=== PATIENT | female | born 1995 | race African-American/Black ===

== ENCOUNTER 2017-07-09 15:39 | Emergency (ER) | payer SELFPAY ==
[2017-07-09 16:42] LABS: Bilirubin Negative (Negative); Blood, Urine Moderate (Negative); Clarity CLEAR (Clear); Glucose, Urine (Dipstick) Negative (Negative); Leukocyte Small (Negative); Nitrite Negative (Negative); Pregnancy Test - Urine (BHCG) POSITIVE (Negative); Pregu Control Background? CLEAR/WHITE (CLR/WHITE); Pregu Control Bar Appear? YES (CONTROL BAR); Protein, Urine (Dipstick) Negative (Neg-Trace); Specific Gravity 1.007 (1.002-1.036); Specific Gravity, Urine 1.009 (1.002-1.036); Urobilinogen 0.2 mg/dL (0.2-1.0); pH, Urine 7.5 (5.0-9.0)
[2017-07-09 16:43] LABS: Bacteria/HPF None Seen HPF (None Seen); Hyaline Casts/LPF 0-3 HYALINE CAST LPF (0-3 Hyaline); Pathc Cast-AUWi Flag 0.13 (0-2.49); RBC/HPF 0-3 HPF (0-3); Squamous Epithelial 0-3 HPF (0-3); WBC/HPF 0-3 HPF (0-3)
[2017-07-09 17:57] LABS: #Eosinphils 0.2 thou/uL (0.0-0.7); #Monocytes 1.1 thou/uL (0.11-0.59); #Neutrophils 6.1 thou/uL (1.40-6.50); %Basophils 0.4 % (0.0-1.0); %Eosinophils 2.2 % (0.0-10.0); %Lymphocytes 28.7 % (21.0-51.0); %Monocytes 10.4 % (0.0-10.0); %Neutrophils 58.3 % (42.0-75.0); Hemoglobin 12.5 g/dL (12.0-16.0); Mean Corpuscular HGB CONC 35.4 g/dL (32.0-36.0); Mean Platelet Volume 7.2 fL (7.4-10.4); Platelet Count 382 thou/uL (130-400); RBC Distribution Width 12.8 % (11.5-14.5); White Blood Cell (WBC) Count 10.5 thou/uL (4.8-10.8)
--- NOTE | 2017-07-09 19:17 | ULT ---
PELVIC ULTRASOUND: Date: 07-09-17 History: Cramping, dizziness, spotting, 22-year-old female. Technique: Multiplanar grayscale sonographic imaging of the pelvis is obtained with transabdominal an d endovaginal imaging. Ovaries are assessed with color flow and spectral analysis. FINDINGS: Uterus measures 10.6 x 5.6 x 5.3 cm. Right ovary measures 3.7 x 1.9 x 2.4 cm and left ovary measures 3.3 x 2.0 x 2.5 cm. There is an intrauterine gestational sac containing a pole and a yolk sac. No evidence for a givens bchorionic hemorrhage is seen. heart rate is approximately 108 beats/minute. Blood flow is note d within both ovaries without evidence for ovarian/adnexal mass. Small volume free fluid is noted in the pelvic cul-de-sac. [place]-rump length of 0.34 cm correlates with a 6 week 0 day gestation. Gestational sac diameter of 1. 8 cm correlates with a 6 week 5 day gestation. Average age based on ultrasound is 6 weeks 3 days with an estimated date of delivery of 03-01-18. IMPRESSION: Intrauterine gestational sac containing pole and yolk sac with heart rate of 108 beats/mi nute. POS: [facility]
[2017-07-11 01:07] LABS: Chlamydia by PCR Not Detected (NotDetected); GC by PCR Not Detected (NotDetected)
== END 2017-07-09 18:19 | disposition home or self-care (01) ==
LOC: ERS 15:39
DX: O99.89 Other specified diseases and conditions complicating pregnancy, childbirth and the puerperium (principal); N89.8 Other specified noninflammatory disorders of vagina; Z3A.01 Less than 8 weeks gestation of pregnancy
CPT/HCPCS: 36415; 36416; 76856; 81003; 81015; 81025; 84702; 85025; 86900; 86901; 87480; 87491; 87510; 87591; 87660

== ENCOUNTER 2017-07-11 18:56 | Emergency (ER) | payer SELFPAY ==
[2017-07-11 19:20] LABS: #Basophils 0.1 thou/uL (0.0-0.2); #Eosinphils 0.2 thou/uL (0.0-0.7); #Monocytes 1.5 thou/uL (0.11-0.59); #Neutrophils 8.6 thou/uL (1.40-6.50); %Basophils 0.7 % (0.0-1.0); %Eosinophils 1.6 % (0.0-10.0); %Lymphocytes 22.3 % (21.0-51.0); %Monocytes 11.3 % (0.0-10.0); %Neutrophils 64.1 % (42.0-75.0); Hemoglobin 12.3 g/dL (12.0-16.0); Mean Corpuscular HGB CONC 35.6 g/dL (32.0-36.0); Mean Corpuscular Hemoglobin 28.8 pg (27.0-31.0); Mean Corpuscular Volume 80.9 fl (81.0-99.0); Mean Platelet Volume 7.2 fL (7.4-10.4); Platelet Count 390 thou/uL (130-400); RBC Distribution Width 12.7 % (11.5-14.5); Red Blood Cell (RBC) Count 4.28 mill/uL (4.20-5.40); White Blood Cell (WBC) Count 13.5 thou/uL (4.8-10.8)
[2017-07-11 19:42] LABS: ALT (SGPT) 17 U/L (8-55); AST (SGOT) 13 U/L (5-34); Albumin 4.1 g/dL (3.5-5.0); Alkaline Phosphatase 63 U/L (40-150); Anion Gap 11 mmol/L (10-20); BUN (Urea Nitrogen) 9 mg/dL (7.0-18.7); Calc. Creatinine Clearance 0 mL/min (70-130); Calcium 9.7 mg/dL (7.8-10.44); Carbon Dioxide 25 mmol/L (22-29); Chloride 104 mmol/L (98-107); Estimated GFR-MDRD Greater than 90; Globulin 3.5 g/dL (2.4-3.5); Glucose 85 mg/dL (70-105); Potassium 3.7 mmol/L (3.5-5.1); Protein, Total 7.6 g/dL (6.0-8.3); Sodium 136 mmol/L (136-145)
[2017-07-11 19:58] LABS: Bilirubin Negative (Negative); Blood, Urine Moderate (Negative); Clarity CLEAR (Clear); Glucose, Urine (Dipstick) Negative (Negative); Leukocyte Moderate (Negative); Nitrite Negative (Negative); Protein, Urine (Dipstick) Negative (Neg-Trace); Specific Gravity, Urine 1.027 (1.002-1.036)
[2017-07-11 20:00] LABS: Bacteria/HPF Rare-Few HPF (None Seen); Hyaline Casts/LPF 0-3 HYALINE CAST LPF (0-3 Hyaline); RBC/HPF 0-3 HPF (0-3)
--- NOTE | 2017-07-11 22:11 | ULT ---
PELVIC ULTRASOUND 07/11/17 COMPARISON: 07/09/17 HISTORY: Cramping, dizziness, and spotting, positive test. TECHNIQUE: Multiplanar barriga scale sonographic imaging of the pelvis obtained with transabdominal imaging. The ov raissa are assessed with color flow and spectral analysis. IMPRESSION: The uterus measures 10.6 x 5.6 x 5.3 cm. Right ovary measures 3.7 x 1.9 x 2.4 cm and left ovary measu res 3.3 x 2.0 x 2.5 cm. Normal blood flow is noted within both ovaries. There is an intrauterine gestational sac demonstrating a pole and a yolk sac. No evidence for a subchorionic hemorrhage is seen. heart rate is 108 beats per minute. No adnexal mass. No free fluid. [place]-rump length is 0.5 cm, correlating with a 6 week, 2 day gestati on. Gestational sac diameter is 2.2 cm correlating with a 7 week, 1 day gestation. Average gestation by ultrasound is 6 weeks, 5 days. Estimated date of delivery is 03/01/18. IMPRESSION: Intrauterine gestation as detailed above. POS: [facility]
== END 2017-07-11 21:01 | disposition home or self-care (01) ==
LOC: ERS 18:56
DX: O20.0 Threatened abortion (principal); O23.41 Unspecified infection of urinary tract in pregnancy, first trimester; Z3A.01 Less than 8 weeks gestation of pregnancy
CPT/HCPCS: 36415; 76856; 80053; 81003; 81015; 84702; 85025; 86850; 86900; 86901; 93976

== ENCOUNTER 2017-07-15 00:07 | Emergency (ER) | payer SELFPAY ==
[2017-07-15 00:57] LABS: #Basophils 0.1 thou/uL (0.0-0.2); #Eosinphils 0.3 thou/uL (0.0-0.7); #Lymphocytes 3.9 thou/uL (1.20-3.40); #Monocytes 1.1 thou/uL (0.11-0.59); #Neutrophils 6.2 thou/uL (1.40-6.50); %Basophils 0.9 % (0.0-1.0); %Eosinophils 2.3 % (0.0-10.0); %Lymphocytes 33.8 % (21.0-51.0); %Monocytes 9.8 % (0.0-10.0); %Neutrophils 53.2 % (42.0-75.0); Hemoglobin 12.5 g/dL (12.0-16.0); Mean Corpuscular HGB CONC 35.8 g/dL (32.0-36.0); Mean Corpuscular Hemoglobin 29.3 pg (27.0-31.0); Mean Corpuscular Volume 81.9 fl (81.0-99.0); Mean Platelet Volume 7.2 fL (7.4-10.4); Platelet Count 390 thou/uL (130-400); RBC Distribution Width 12.8 % (11.5-14.5); Red Blood Cell (RBC) Count 4.28 mill/uL (4.20-5.40); White Blood Cell (WBC) Count 11.6 thou/uL (4.8-10.8)
[2017-07-15 01:13] LABS: ALT (SGPT) 21 U/L (8-55); AST (SGOT) 15 U/L (5-34); Albumin 3.9 g/dL (3.5-5.0); Alkaline Phosphatase 60 U/L (40-150); Anion Gap 12 mmol/L (10-20); BUN (Urea Nitrogen) 8 mg/dL (7.0-18.7); Bilirubin, Total 0.9 mg/dL (0.2-1.2); Calc. Creatinine Clearance 0 mL/min (70-130); Calcium 9.6 mg/dL (7.8-10.44); Carbon Dioxide 23 mmol/L (22-29); Chloride 104 mmol/L (98-107); Estimated GFR-MDRD Greater than 90; Globulin 3.5 g/dL (2.4-3.5); Glucose 88 mg/dL (70-105); Potassium 3.9 mmol/L (3.5-5.1); Protein, Total 7.4 g/dL (6.0-8.3); Sodium 135 mmol/L (136-145)
== END 2017-07-15 01:54 | disposition home or self-care (01) ==
LOC: ERS 00:07
DX: O21.9 Vomiting of pregnancy, unspecified (principal); O99.281 Endocrine, nutritional and metabolic diseases complicating pregnancy, first trimester; E78.5 Hyperlipidemia, unspecified; Z3A.01 Less than 8 weeks gestation of pregnancy
CPT/HCPCS: 36415; 36416; 80053; 84702; 85025; 96360

== ENCOUNTER 2017-08-26 16:31 | Emergency (ER) | payer MEDICAID ==
[2017-08-26 17:28] LABS: Bilirubin Small (Negative); Blood, Urine Negative (Negative); Clarity CLOUDY (Clear); Glucose, Urine (Dipstick) Negative (Negative); Leukocyte Large (Negative); Nitrite Negative (Negative); Pregnancy Test - Urine (BHCG) POSITIVE (Negative); Protein, Urine (Dipstick) 30 mg/dL (Neg-Trace); pH, Urine 5.5 (5.0-9.0)
[2017-08-26 17:29] LABS: Bacteria/HPF Rare-Few HPF (None Seen); Pathc Cast-AUWi Flag 2.47 (0-2.49); Pregu Control Background? CLEAR/WHITE (CLR/WHITE); Pregu Control Bar Appear? YES (CONTROL BAR)
[2017-08-26 17:39] LABS: Hyaline Casts/LPF 0-3 HYALINE CAST LPF (0-3 Hyaline)
[2017-08-26] MEDS ORDERED: diphenhydrAMINE 50 MG/ML VIAL ONE (17:47)
[2017-08-26] MEDS ORDERED: Metoclopramide HCl 10 MG/2 ML VIAL ONE (17:47)
[2017-08-26 17:56] LABS: #Eosinphils 0.1 thou/uL (0.0-0.7); #Lymphocytes 2.7 thou/uL (1.20-3.40); #Neutrophils 7.2 thou/uL (1.40-6.50); %Basophils 0.4 % (0.0-1.0); %Eosinophils 0.6 % (0.0-10.0); %Lymphocytes 24.6 % (21.0-51.0); %Monocytes 9.2 % (0.0-10.0); %Neutrophils 65.2 % (42.0-75.0); Hemoglobin 14.8 g/dL (12.0-16.0); Mean Corpuscular HGB CONC 36.3 g/dL (32.0-36.0); Mean Corpuscular Hemoglobin 29.5 pg (27.0-31.0); Mean Corpuscular Volume 81.3 fl (81.0-99.0); Mean Platelet Volume 6.9 fL (7.4-10.4); Platelet Count 406 thou/uL (130-400); RBC Distribution Width 13.3 % (11.5-14.5); White Blood Cell (WBC) Count 11.1 thou/uL (4.8-10.8)
[2017-08-26] MEDS ORDERED: Nitrofurantoin Macrocrystal 50 MG CAP PO SCH (18:30)
[2017-08-26] MEDS ORDERED: cefTRIAXone\\ROCEPHIN 250 MG VIAL ONE (18:42)
[2017-08-26] MEDS ORDERED: Azithromycin 250 MG TAB ONE (18:42)
[2017-08-26] MEDS ORDERED: Lidocaine 1% PF 5 ML VIAL ONE (18:42)
[2017-08-26 19:02] LABS: Calcium 9.4 mg/dL (7.8-10.44); Chloride 105 mmol/L (98-107); Potassium 3.6 mmol/L (3.5-5.1); Sodium 137 mmol/L (136-145)
[2017-08-26 19:03] LABS: Globulin 3.3 g/dL (2.4-3.5); Glucose 95 mg/dL (70-105); Protein, Total 7.3 g/dL (6.0-8.3)
[2017-08-26 19:04] LABS: Anion Gap 14 mmol/L (10-20); Carbon Dioxide 22 mmol/L (22-29)
[2017-08-26 19:05] LABS: Bilirubin, Total 1.1 mg/dL (0.2-1.2)
[2017-08-26 19:06] LABS: Alkaline Phosphatase 44 U/L (40-150); Calc. Creatinine Clearance 0 mL/min (70-130); Estimated GFR-MDRD Greater than 90
[2017-08-26 19:07] LABS: BUN (Urea Nitrogen) 8 mg/dL (7.0-18.7)
[2017-08-26 19:08] LABS: AST (SGOT) 25 U/L (5-34)
[2017-08-26 19:09] LABS: ALT (SGPT) 33 U/L (8-55)
[2017-08-27 22:22] LABS: Chlamydia by PCR Not Detected (NotDetected); GC by PCR Not Detected (NotDetected)
== END 2017-08-26 19:30 | disposition home or self-care (01) ==
LOC: ERS 16:31
DX: O99.282 Endocrine, nutritional and metabolic diseases complicating pregnancy, second trimester; O21.0 Mild hyperemesis gravidarum; Z3A.17 17 weeks gestation of pregnancy; E78.5 Hyperlipidemia, unspecified
CPT/HCPCS: 36415; 80053; 81003; 81015; 81025; 84702; 85025; 87077; 87086; 87480; 87491; 87510; 87591; 87660; 96361; 96372; 96374; 96375; J0696; J1200; J2001; J2765

== ENCOUNTER 2017-12-25 14:22 | Observation (INO) | payer MEDICAID, OTHER ==
[2017-12-25 15:07] LABS: #Basophils 0.1 thou/uL (0.0-0.2); #Eosinphils 0.1 thou/uL (0.0-0.7); #Lymphocytes 2.3 thou/uL (1.20-3.40); #Monocytes 1.4 thou/uL (0.11-0.59); #Neutrophils 6.1 thou/uL (1.40-6.50); %Basophils 0.5 % (0.0-1.0); %Lymphocytes 23.5 % (21.0-51.0); %Monocytes 13.6 % (0.0-10.0); %Neutrophils 61.4 % (42.0-75.0); Hemoglobin 11.3 g/dL (12.0-16.0); Mean Corpuscular HGB CONC 36.4 g/dL (32.0-36.0); Mean Corpuscular Hemoglobin 29.9 pg (27.0-31.0); Mean Platelet Volume 7.3 fL (7.4-10.4); Platelet Count 273 thou/uL (130-400); White Blood Cell (WBC) Count 9.9 thou/uL (4.8-10.8)
[2017-12-25 15:32] LABS: ALT (SGPT) 14 U/L (8-55); AST (SGOT) 14 U/L (5-34); Albumin 3.8 g/dL (3.5-5.0); Alkaline Phosphatase 56 U/L (40-150); Anion Gap 12 mmol/L (10-20); BUN (Urea Nitrogen) 4 mg/dL (7.0-18.7); Bilirubin, Total 0.5 mg/dL (0.2-1.2); Calc. Creatinine Clearance 0 mL/min (70-130); Calcium 9.5 mg/dL (7.8-10.44); Carbon Dioxide 19 mmol/L (22-29); Chloride 107 mmol/L (98-107); Estimated GFR-MDRD Greater than 90; Globulin 3.2 g/dL (2.4-3.5); Glucose 84 mg/dL (70-105); Potassium 3.9 mmol/L (3.5-5.1); Sodium 134 mmol/L (136-145)
--- NOTE | 2017-12-25 16:06 | ULT ---
OBSTETRIC SONOGRAM LIMITED: 12/25/17 HISTORY: induced hypertension. FINDINGS: Multiple transabdominal sonographic views of the gravid uterus show a single intrauterine gestation i n cephalic presentation. Grade II placenta is anterior. Amniotic fluid index is 16.4. Heart motion at 135 beats per minute. Advanced age limits anatomic detail. Good color and spectral doppler wilfrido w within the umbilical cord with S-D ratio of 2.7. Resistive index is 0.56. Measurements are as follows: Biparietal diameter 31 weeks, 3 days Head circumference 32 weeks, 2 days Abdominal circumference 31 weeks, 0 days Femur length 31 weeks, 1 day Estimated date of delivery based on today's sonogram is 02/22/18. [place] percentile 35%. Estimated fe jakob weight 1718 grams. IMPRESSION: Single viable intrauterine gestation with estimated gestational age based on today's sonogram of 31 w eeks, 4 days. Umbilical cord evaluation within normal limits. POS: [facility]
[2017-12-25] MEDS ORDERED: Ondansetron HCl/PF 4 MG/2 ML Vial IVP PRN (17:52)
[2017-12-25] MEDS ORDERED: Acetaminophen 500 MG TAB PO PRN (17:52)
[2017-12-25] MEDS: Betamet Acet/Betamet Na Ph 30 MG/5 ML VIAL IM SCH (18:16)
[2017-12-25] MEDS ORDERED: Cephalexin 250 MG CAP PO SCH (19:45)
[2017-12-26] MEDS: Cephalexin 250 MG CAP PO SCH ×2 (09:21→14:53)
[2017-12-26 12:46] VITALS: BP 113/53; TEMP 98.2
[2017-12-26] MEDS ORDERED: Ondansetron ODT 4 MG TAB SL PRN (13:39)
[2017-12-26] MEDS ORDERED: Ondansetron ODT 4 MG TAB SL SCH (13:45)
[2017-12-26 16:15] LABS: Collection Duration 24 hrs; Urine Total Volume 2450 mL (600-1600)
[2017-12-26 16:38] LABS: Protein, Urine Less than 10 mg/dL (1-14)
[2017-12-26] MEDS: Betamet Acet/Betamet Na Ph 30 MG/5 ML VIAL IM SCH (18:30)
[2017-12-26 19:37] VITALS: BMI 43.9
== END 2017-12-26 19:55 | disposition home health service (06) ==
LOC: L&D/OP 14:22 → L&D 17:50
PROVIDERS: ADMIT Family Medicine; ATTEND Family Medicine
DX: O13.3 Gestational [pregnancy-induced] hypertension without significant proteinuria, third trimester (principal); Z3A.31 31 weeks gestation of pregnancy
CPT/HCPCS: 36415; 76700; 76815; 80053; 81003; 82570; 84156; 85025; 96372; 99285; G0378; J0702; Q0162

== ENCOUNTER 2017-12-28 15:12 | Day surgery (SDC) | payer OTHER ==
[2017-12-28 16:52] VITALS: BMI 41.3
[2017-12-28 16:58] VITALS: BP 132/70; TEMP 99.1
--- NOTE | 2017-12-28 18:16 | PRG ---
DATE OF SERVICE: 12/28/2017 OB ER ENCOUNTER PRIMARY INSPECTOR WATCH ASSEMBLY: Roel Donaldson MD CHIEF COMPLAINT: Chest and epigastric pain. HISTORY OF PRESENT ILLNESS: The patient is a 22-year-old, G1, P0 female with an intrauterine at 31 weeks and 5 days, who presented to labor and delivery today after experiencing some upper abdominal epigastric and chest pains. She reports that the pain in her abdomen and her chest have all since resolved by the time I came to evaluate her. She reports that her chest pain is like lightning from her chest down to her abdomen. She denied any association with breathing or movement. Her abdominal pain she described as tightening. In temporal proximity to these symptoms, the patient has eaten Dairy Ortiz. When asked what the patient's biggest concern was, the patient reports that she has a family member that had preeclampsia and that she was worried that she may be developing that also. The patient denies headache, fever, shortness of breath, nausea, vomiting, diarrhea, constipation, any new rashes, any hip problems, knee problems, muscle weakness. She does report she still has copious amount of vaginal discharge, for which she was diagnosed with Trichomonas a few weeks back and placed on metronidazole. The patient reports her discharge has not changed since then. She denies any sexual contact since the time of her antibiotic use. The patient denies urinary urgency or frequency. PAST MEDICAL HISTORY: Sickle cell trait, elevated cholesterol, morbid obesity. PAST SURGICAL HISTORY: Negative. ALLERGIES: No known drug allergies. MEDICATIONS: Currently on Keflex, which she says that she is taking per her doctor's instructions, but unsure why. SOCIAL HISTORY: Denies drug, alcohol, or tobacco use. OBSTETRIC LABORATORY DATA: Blood type is O positive. Antibody screen is negative. RPR in the first and third trimester are negative. HIV in the first and third trimester is negative. Hepatitis B surface antigen is negative. She is rubella nonimmune. One-hour Glucola is 150. Three-hour GTT is within normal limits. She had GBS present in her urine on initial culture and had Trichomonas present on 11/20/2017. REVIEW OF SYSTEMS: Per HPI. PHYSICAL EXAMINATION: VITAL SIGNS: Blood pressure 128/61, heart rate of 91, O2 sats 96% on room air, respiratory rate 18, temperature 99.1. GENERAL: She appears to be in no acute distress. She is alert and oriented, cooperative, and pleasant to interact with. HEENT: Normocephalic, atraumatic. LUNGS: Clear to auscultation bilaterally. HEART: Regular rate and rhythm. ABDOMEN: Protuberant, nontender to palpation. She does have some reproducible pain to palpation of her costochondral juncture, mid thoracic region on the left , and she has some reproducible pain on the patient's right abdomen with deviation of the uterus. EXTREMITIES: Nontender, nonedematous. GENITOURINARY: Has been deferred. heart tracing and NST performed for abdominal pain in . Baseline is in the 140s with moderate long-term variability, positive accelerations, no decelerations. Tocometer does not show any evidence of regular contractions. SURGICAL TECHNICIAN-3 has been collected and sent. ASSESSMENT AND PLAN: The patient is a 22-year-old female with an intrauterine at 31 weeks and 5 days and history of Trichomonas and persistent vaginal discharge, presenting with isolated and short-lived abdominal and chest pains in close proximity to eating Dairy Ortiz. The patient has no symptoms at this time. I did attempt to get a right upper quadrant ultrasound to evaluate her gallbladder, but given that she just ate, ultrasound would not be able to perform optimal imaging. The patient has been given an order for an outpatient ultrasound to be performed for her gallbladder, and has been given instructions to go in fasting and has been given the phone number for her to make her appointment. The patient also expressed interest to leave before the SURGICAL TECHNICIAN-3 results were available and has been given instructions to call back for those results, which she has agreed to do. The patient has been discharged to home. Fetus is reactive NST and category 1 tracing. Addendum, VP3 is positive for trichamonas again. PT never called back to get results. i have attempted to call her with the number in the system but it goes straight to a message stating voicemail is full. Perhaps Dr Donaldson's office can reach her. JONNAD
[2017-12-30] MEDS ORDERED: VIT B6 PO SCH (09:00)
[2017-12-30] MEDS ORDERED: Cephalexin 250 MG CAP PO SCH (09:00)
[2017-12-30] MEDS ORDERED: DOXYLAMINE SUCCINATE PO SCH (09:00)
[2017-12-30] MEDS ORDERED: Prenatal Vitamin 1 TAB PO SCH (09:00)
== END 2017-12-28 17:10 | disposition home health service (06) ==
LOC: L&D/OP 15:12
PROVIDERS: ATTEND Obstetrics & Gynecology
DX: O99.89 Other specified diseases and conditions complicating pregnancy, childbirth and the puerperium (principal); R10.13 Epigastric pain; R07.9 Chest pain, unspecified; O99.213 Obesity complicating pregnancy, third trimester; E66.01 Morbid (severe) obesity due to excess calories; Z68.41 Body mass index [BMI] 40.0-44.9, adult; Z3A.31 31 weeks gestation of pregnancy
CPT/HCPCS: 87480; 87510; 87660; 99283

== ENCOUNTER 2018-01-17 01:06 | Emergency (ER) | payer OTHER ==
[2018-01-17 02:10] LABS: #Eosinphils 0.3 thou/uL (0.0-0.7); #Monocytes 1.3 thou/uL (0.11-0.59); #Neutrophils 5.4 thou/uL (1.40-6.50); %Basophils 0.2 % (0.0-1.0); %Eosinophils 2.9 % (0.0-10.0); %Lymphocytes 22.1 % (21.0-51.0); %Monocytes 14.7 % (0.0-10.0); %Neutrophils 60.2 % (42.0-75.0); Hemoglobin 10.9 g/dL (12.0-16.0); Mean Corpuscular HGB CONC 36.2 g/dL (32.0-36.0); Mean Corpuscular Hemoglobin 29.2 pg (27.0-31.0); Mean Corpuscular Volume 80.5 fL (78.0-98.0); Mean Platelet Volume 7.4 fL (7.4-10.4); Platelet Count 263 thou/uL (130-400); Red Blood Cell (RBC) Count 3.75 mill/uL (4.20-5.40)
[2018-01-17 02:27] LABS: ALT (SGPT) 15 U/L (8-55); AST (SGOT) 12 U/L (5-34); Albumin 3.6 g/dL (3.5-5.0); Alkaline Phosphatase 76 U/L (40-150); Anion Gap 13 mmol/L (10-20); BUN (Urea Nitrogen) 5 mg/dL (7.0-18.7); Bilirubin, Total 0.5 mg/dL (0.2-1.2); Calc. Creatinine Clearance 0 mL/min (70-130); Calcium 9.2 mg/dL (7.8-10.44); Carbon Dioxide 20 mmol/L (22-29); Chloride 107 mmol/L (98-107); Estimated GFR-MDRD Greater than 90; Globulin 3.3 g/dL (2.4-3.5); Glucose 102 mg/dL (70-105); Potassium 3.9 mmol/L (3.5-5.1); Protein, Total 6.9 g/dL (6.0-8.3); Sodium 136 mmol/L (136-145)
[2018-01-17 03:49] LABS: Creatinine, Urine 87.58 mg/dL (47-110)
--- NOTE | 2018-01-17 08:12 | RAD ---
SINGLE VIEW OF THE CHEST: COMPARISON: None. HISTORY: Congestion and vomiting that started today. Cough. FINDINGS: Single view of the chest shows a normal sized cardiomediastinal silhouette. There is no evidence of c onsolidation, mass, or pleural effusion. The bones are unremarkable. IMPRESSION: No evidence of acute cardiopulmonary disease. POS: [facility]
== END 2018-01-17 03:34 | disposition home or self-care (01) ==
LOC: ERS 01:06
DX: O99.513 Diseases of the respiratory system complicating pregnancy, third trimester (principal); J32.9 Chronic sinusitis, unspecified; B97.89 Other viral agents as the cause of diseases classified elsewhere; Z3A.34 34 weeks gestation of pregnancy; E78.5 Hyperlipidemia, unspecified; O13.3 Gestational [pregnancy-induced] hypertension without significant proteinuria, third trimester
CPT/HCPCS: 36415; 71045; 80053; 82570; 83880; 84156; 84550; 85025

== ENCOUNTER 2019-08-10 09:42 | Emergency (ER) | payer OTHER ==
[2019-08-10] MEDS ORDERED: Ondansetron ODT 4 MG TAB ONE (10:44)
[2019-08-10] MEDS ORDERED: Ibuprofen 200 MG TAB ONE (10:44)
[2019-08-10 11:25] LABS: Bilirubin Negative (Negative); Blood, Urine Negative (Negative); Clarity Clear (Clear); Glucose, Urine (Dipstick) Normal (Negative); Leukocyte 25 Leu/uL (Negative); Mucous/LPF Rare LPF (<2+); Nitrite 2+ (Negative); Pregnancy Test - Urine (BHCG) Negative (Negative); Pregu Control Background? CLEAR/WHITE (CLR/WHITE); Pregu Control Bar Appear? YES (CONTROL BAR); Protein, Urine (Dipstick) 30 mg/dL (Neg-Trace); Specific Gravity 1.032 (1.002-1.036); Squamous Epithelial 0-3 HPF (0-3); Urobilinogen Normal mg/dL (Less than 2)
[2019-08-10 11:33] LABS: Bacteria/HPF 2+ HPF (None Seen)
== END 2019-08-10 12:00 | disposition home or self-care (01) ==
LOC: ERS 09:42
DX: N39.0 Urinary tract infection, site not specified (principal); E78.5 Hyperlipidemia, unspecified; E78.00 Pure hypercholesterolemia, unspecified
CPT/HCPCS: 81003; 81015; 81025; 87086; 87804; 99283; Q0162

== ENCOUNTER 2019-09-01 04:43 | Emergency (ER) | payer MEDICAID, SELFPAY ==
[2019-09-01] MEDS ORDERED: METHOTREXATE SODIUM IM SCH (06:30)
--- NOTE | 2019-09-01 07:04 | CON ---
DATE OF CONSULTATION: REFERRING PHYSICIAN: Dr. Eden, ER physician. CHIEF COMPLAINT: Concerns for ectopic . HISTORY OF PRESENT ILLNESS: The patient is a 24-year-old, G2, now P1 female with a last menstrual period of 06/29/2019, who presented to the emergency room with abdominal pain and cramping. She was noted to have no IUP with a quantitative HCG of 17,000. In addition, patient was noted to have a 2.7 cm para ovarian echogenic ring-like mass, suspicious for ectopic . The patient was transferred from [facility] to [place] for evaluation. On arrival, I was called and came to see the patient. The patient at that time reported that she was not having any pain except for rectal pain that she felt most when she was sitting down. She denies any abdominal pain. She denies any pulmonary disease, any liver disease. Denies a previous history of ectopic pregnancies. She does report a history of chlamydia in the past. The patient denies history of fever, cough, headache, chest pain, shortness of breath, nausea, and vomiting. She did have an episode of loose stool yesterday, but denies constipation. She does report a history of hemorrhoids. Denies any rashes, hip problems, knee problems, muscle weakness, vaginal bleeding. PAST MEDICAL HISTORY: Negative. PAST SURGICAL HISTORY: Negative. ALLERGIES: NO KNOWN DRUG ALLERGIES. MEDICATIONS: None. SOCIAL HISTORY: The patient does report occasional tobacco use. Denies any drug or alcohol use. PHYSICAL EXAMINATION: VITAL SIGNS: Blood pressure is 116/66, pulse is 64, respiratory rate 18, temperature 98.4, saturating 99% on room air. GENERAL: She is reclined comfortably in the exam bed. She is alert, oriented, cooperative, and pleasant to interact with. HEENT: Head is normocephalic, atraumatic. LUNGS: Clear to auscultation bilaterally. HEART: Regular rate and rhythm. ABDOMEN: Soft to deep and light palpation. She has some minimal tenderness in the right lower side with deep palpation but no guarding, no peritoneal signs, no rigidity and only mild pain. : Deferred at this time. LABORATORY DATA: Quantitative HCG again was 17,346. LFTs are within normal limits. White count of 9000 and platelets of 345,000. ASSESSMENT AND PLAN: The patient is a 24-year-old female with a suspected ectopic as evidenced by no intrauterine . Quantitative HCG of 17,000 with a 2.7 cm adnexal rim enhancing mass. We discussed the options of surgery versus medical management. We discussed the potential risks and benefits of both, including the risks associated with surgery and then the risks of the medication including sores in her GI tract including mouth and anus, abdominal pains, diarrhea. She also confirmed once again that she has no pulmonary disease. No liver problems. We did discuss the importance of avoiding sex, alcohol consumption, vitamins and should she begin experiencing significant bleeding or pain, to contact her provider or come to the emergency room should she take medical direction. After discussing treatment options and calling her , patient has chosen to move forward with the medical management. Calculating at 50 mg/m2 at a weight of 113 kg, a height of 67 inches, dosing came out to 115 mg. She has been given a prescription for quantitative HCG on day four and day seven. She was scheduled or is planning on seeing Dr. Roel Donaldson for her today. We will be contacting Dr. Donaldson for just to inform him of her situation currently with plans for him assuming care. Job ID: [id number]
== END 2019-09-01 07:00 | disposition home or self-care (01) ==
LOC: ERS 04:43
DX: O00.90 Unspecified ectopic pregnancy without intrauterine pregnancy (principal); E78.5 Hyperlipidemia, unspecified; E78.00 Pure hypercholesterolemia, unspecified
CPT/HCPCS: 96372; 99284; J9250

== ENCOUNTER 2019-09-02 12:30 | Emergency (ER) | payer SELFPAY ==
[2019-09-02 13:27] LABS: #Eosinphils 0.1 thou/uL (0.0-0.7); #Lymphocytes 2.3 thou/uL (1.20-3.40); #Monocytes 0.7 thou/uL (0.11-0.59); %Basophils 0.3 % (0.0-1.0); %Eosinophils 0.8 % (0.0-10.0); %Lymphocytes 28.6 % (21.0-51.0); %Neutrophils 61.3 % (42.0-75.0); Hemoglobin 13.2 g/dL (12.0-16.0); Mean Corpuscular Hemoglobin 29.2 pg (27.0-31.0); Mean Corpuscular Volume 81.3 fL (78.0-98.0); Mean Platelet Volume 7.7 fL (7.4-10.4); Platelet Count 373 thou/uL (130-400); RBC Distribution Width 13.8 % (11.5-14.5); Red Blood Cell (RBC) Count 4.52 mill/uL (4.20-5.40); White Blood Cell (WBC) Count 8.1 thou/uL (4.8-10.8)
[2019-09-02] MEDS ORDERED: Ondansetron PF 4 MG/2 ML Vial ONE ×2 (13:32→17:32)
[2019-09-02] MEDS ORDERED: Acetaminophen 500 MG TAB ONE (13:32)
[2019-09-02 14:16] LABS: ALT (SGPT) 15 U/L (8-55); AST (SGOT) 15 U/L (5-34); Albumin 4.4 g/dL (3.5-5.0); Alkaline Phosphatase 56 U/L (40-110); Anion Gap 13 mmol/L (10-20); BUN (Urea Nitrogen) 8 mg/dL (7.0-18.7); Bilirubin, Total 1.2 mg/dL (0.2-1.2); Calc. Creatinine Clearance 0 mL/min (70-130); Calcium 9.7 mg/dL (7.8-10.44); Carbon Dioxide 21 mmol/L (22-29); Chloride 106 mmol/L (98-107); Estimated GFR-MDRD Greater than 90; Globulin 3.5 g/dL (2.4-3.5); Glucose 85 mg/dL (70-105); Potassium 3.7 mmol/L (3.5-5.1); Protein, Total 7.9 g/dL (6.0-8.3); Sodium 136 mmol/L (136-145)
[2019-09-02 14:48] LABS: Bacteria/HPF None Seen HPF (None Seen); Bilirubin Negative (Negative); Blood, Urine Negative (Negative); Clarity Clear (Clear); Glucose, Urine (Dipstick) Normal (Negative); Leukocyte 75 Leu/uL (Negative); Nitrite Negative (Negative); Protein, Urine (Dipstick) 20 mg/dL (Neg-Trace); RBC/HPF 0-3 HPF (0-3)
--- NOTE | 2019-09-02 16:06 | ULT ---
TRANSABDOMINAL AND TRANSVAGINAL PELVIC ULTRASOUND WITH DOPPLER: 09/02/19 PROVIDED CLINICAL HISTORY: Pelvic pain, ectopic . FINDINGS: Uterus measures about 11.4 x 5.3 x 6.9 cm and demonstrates a normal sonographic appearance of the [place] myometrium. There is endometrial thickening with a small amount of endometrial fluid. There is n o evidence for an intrauterine gestational sac. The right ovary appears sonographically unremarkable. The left adnexa is somewhat suboptimally visual ized. There is a cystic structure adjacent to the left ovary measuring about 2.2 cm. The left ovary itself appears normal. There is a small amount of simple appearing free pelvic fluid in the cul-de-sac. IMPRESSION: 1. No evidence for an intrauterine gestational sac. In the setting of a positive beta HCG value, ectopic cannot be excluded. 2. Left adnexal cystic structure may reflect the provided clinical history of ectopic . 3. Small amount of likely physiologic free pelvic fluid. POS: [facility]
[2019-09-02] MEDS ORDERED: Mineral Oil ENEMA PR SCH (17:00)
--- NOTE | 2019-09-03 01:43 | CON ---
DATE OF CONSULTATION: 09/02/2019 CHIEF COMPLAINT: Abdominal pain. HISTORY OF PRESENT ILLNESS: The patient is a 24-year-old female, who initially presented yesterday morning with pelvic and rectal pain and had findings concerning for ectopic . After counseling, the patient has opted medical treatment and was given 115 mg of methotrexate IM. She has re-presented this afternoon with complaints of abdominal pain and I was asked to come and see her. She reports to me that she feels like she is constipated and has not had a bowel movement in four days. She does report she has abdominal pain, but has only had Tylenol today for treatment. The patient denies any bleeding. She denies any worsening pain or pain sufficiently strong to limit her ability to function. The patient is scheduled to go into work tonight and was wondering if she is able to do that. PAST MEDICAL HISTORY: Obesity, hyperlipidemia. PAST SURGICAL HISTORY: Negative. SOCIAL HISTORY: The patient is a former tobacco user. Denies alcohol or drug use. ALLERGIES: SHELLFISH. MEDICATIONS: Tylenol. REVIEW OF SYSTEMS: The patient denies fever, nausea, vomiting, or diarrhea. She reports constipation. She reports decreased appetite. She reports rectal pain and she reports some pain in her lower right quadrant. PHYSICAL EXAMINATION: VITAL SIGNS: Blood pressure 112/50, pulse of 51, respiratory rate 18, temperature 98.7. GENERAL: She appears to be in no acute distress. She is alert, oriented, cooperative, pleasant to interact with. HEAD: Normocephalic, atraumatic. LUNGS: Clear to auscultation bilaterally. HEART: Regular rate and rhythm. ABDOMEN: Soft. There is no guarding. There are no peritoneal signs. She has some minimal tenderness with deep palpation on the left lower pelvis. Repeat ultrasound was performed today. Again finding a 2.2 cm cystic mass in the left adnexa adjacent to the ovary concerning for ectopic . She has no findings or evidence of an intrauterine . Her beta HCG today is 27,000. ASSESSMENT AND PLAN: The patient is a 24-year-old female with 2.2 cm left adnexal mass concerning for an ectopic . She has been given a dose of methotrexate, day four is on checking her quant levels and day seven is Sunday. During her stay here and our discussions, the patient believes most of her pain is related to not having a bowel movement for the last four days. She was given an enema while she was here and while the patient denies that she had any significant bowel movement, she does report that on my re-evaluation that her pain has improved quite a bit. She has only had Tylenol during her stay and believes that she feels comfortable going home without any pain medication. I did provide a note for her requesting that she not work for the next few days or trying to figure out the course of this treatment plan. The patient has been given precautions and told to return should her pelvic abdominal pain significantly worsen and reviewed again the importance of getting labs this . Job ID: [id number]
--- NOTE | 2019-09-06 09:49 | EKG ---
Test Reason : Blood Pressure : / mmHG Vent. Rate : 054 BPM Atrial Rate : 054 BPM P-R Int : 138 ms QRS Dur : 080 ms QT Int : 426 ms P-R-T Axes : 042 061 037 degrees QTc Int : 403 ms Sinus bradycardia Otherwise normal ECG Confirmed by MANJINDER RAMOS DO ([id number]), editor newspaper RIGOBERTO MASON ([id number]) on 09/06/2019 9:48:58 AM Referred By: Confirmed By:MANJINDER RAMOS DO
== END 2019-09-02 19:15 | disposition home or self-care (01) ==
LOC: ERS 12:30
DX: O00.90 Unspecified ectopic pregnancy without intrauterine pregnancy (principal); K59.00 Constipation, unspecified; Z87.891 Personal history of nicotine dependence
CPT/HCPCS: 36415; 76856; 80053; 81003; 81015; 84702; 85025; 93005; 96374; 96376; J2405

== ENCOUNTER 2019-09-03 10:15 | Emergency (ER) | payer SELFPAY ==
[2019-09-03] MEDS ORDERED: Ondansetron PF 4 MG/2 ML Vial ONE ×2 (11:09→12:05)
[2019-09-03 11:38] LABS: #Basophils 0.1 thou/uL (0.0-0.2); #Eosinphils 0.1 thou/uL (0.0-0.7); #Lymphocytes 2.2 thou/uL (1.20-3.40); #Monocytes 0.5 thou/uL (0.11-0.59); #Neutrophils 5.9 thou/uL (1.40-6.50); %Basophils 0.7 % (0.0-1.0); %Eosinophils 0.7 % (0.0-10.0); %Lymphocytes 25.1 % (21.0-51.0); %Monocytes 6.1 % (0.0-10.0); %Neutrophils 67.3 % (42.0-75.0); Hemoglobin 12.3 g/dL (12.0-16.0); Mean Corpuscular HGB CONC 35.4 g/dL (32.0-36.0); Mean Corpuscular Hemoglobin 28.8 pg (27.0-31.0); Mean Corpuscular Volume 81.3 fL (78.0-98.0); Mean Platelet Volume 7.7 fL (7.4-10.4); Platelet Count 354 thou/uL (130-400); RBC Distribution Width 13.7 % (11.5-14.5); Red Blood Cell (RBC) Count 4.28 mill/uL (4.20-5.40); White Blood Cell (WBC) Count 8.7 thou/uL (4.8-10.8)
[2019-09-03] MEDS ORDERED: Midazolam HCl 2 mg/2 ml Vial ONE (11:52)
[2019-09-03] MEDS ORDERED: HYDROmorphone 0.5 MG/0.5 ML SYRINGE ONE (11:52)
[2019-09-03] MEDS ORDERED: Lidocaine 2% Jelly 5 ML TUBE ONE (11:52)
[2019-09-03] MEDS ORDERED: Fentanyl 100 MCG/2 ML VIAL ONE ×4 (11:52→15:37)
--- NOTE | 2019-09-03 12:03 | PDOC.EVN ---
Event Note - Event Note Event Note: Patient seen at bedside H&P dictated CC: pelvic pain after MTX HPI: 24 yo AAF 1 s/p MTX on Sunday, here with nausea and LAP. Sono: Left 2.2cm cystic adnexal mass HCT 34 Type & Cross sent Impression: 1. Abnormal IUP with increase pelvic pain, rising BHCG, possible ectopic on left 2. S/P MTX Plan: 1. Diag laparoscopy 2. lapartomy and D&C only if indicated 3. T&C for 2 units 4. IC obtained 5. OR aware
[2019-09-03] MEDS ORDERED: Dexamethasone 20 MG/5 ML VIAL ONE (12:05)
[2019-09-03] MEDS ORDERED: Succinylcholine Chloride 20 MG/ML 10 ml SYRINGE FS ONE (12:05)
[2019-09-03] MEDS ORDERED: PROPOFOL 200 MG/20 ML VIAL ONE (12:05)
[2019-09-03] MEDS ORDERED: Metoclopramide HCl 10 MG/2 ML VIAL ONE (12:05)
[2019-09-03] MEDS ORDERED: Lidocaine 1% PF 5 ML VIAL ONE (12:05)
[2019-09-03] MEDS ORDERED: Ketorolac Tromethamine 30 MG/ML VIAL ONE (12:05)
[2019-09-03] MEDS ORDERED: Glycopyrrolate 0.2 MG/ML 5 ML SYRINGE ONE (12:05)
[2019-09-03] MEDS ORDERED: Rocuronium Bromide 10 MG/ML (10ML VIAL) ONE (12:05)
[2019-09-03] MEDS ORDERED: Lactated Ringer's 1,000 ML IV SCH (12:15)
[2019-09-03 12:29] LABS: INR-International Normal Ratio 1.3; PTT 30.5 SEC (22.9-36.1); Prothrombin Time 16.3 SEC (12.0-14.7)
--- NOTE | 2019-09-03 12:30 | HP ---
TIME OF EVALUATION: Roughly 11:30 until 11:55. LOCATION: ER bed 3. PHYSICIAN FIRST SEEN: By Vance Keene MD with Emergency Medicine. REASON FOR EVALUATION: The patient is status post methotrexate on Sunday with rising beta-hCG levels and increased abdominal pain with nausea. CHIEF COMPLAINT: Increasing abdominal pain and nausea. HISTORY OF PRESENT ILLNESS: This is a 24-year-old , G2, P1, with a vaginal delivery in 2018, who received methotrexate with Dr. Pacheco on Sunday with her beta-hCG of about 17,000. Her beta-hCG yesterday when she presented to the ER again with some increasing abdominal discomfort was 27,000. She also has some increasing nausea and states that when she moves, her pelvic pain which is worse on the right seems to be worse. REVIEW OF SYSTEMS: The patient denies fever, cough or recent travel. All other review of systems were negative unless specified in the HPI. ALLERGIES: NONE. PAST MEDICAL HISTORY: 1. She is a sickle cell carrier, but does not have sickle cell disease. 2. She does not have diabetes or asthma. PAST SURGICAL HISTORY: Negative. SOCIAL HISTORY: Noncontributory. OB HISTORY: She has had a prior vaginal . PHYSICAL EXAMINATION: VITAL SIGNS: Her blood pressure is 131/56, her pulse is 80 to 90, respirations are 18 and nonlabored, and temperature is afebrile. GENERAL: She is in no acute distress, but does have some visible discomfort in her abdomen. ABDOMEN: Some pain on deep palpation, although there is no rebound, but rebound may be limited because of her BMI. PELVIC: Deferred DIAGNOSTIC DATA: Ultrasound: The patient did have a recent ultrasound examination performed through the emergency room, which showed the following. The ultrasound was performed on 09/02/2019, which revealed a small amount of simple-appearing free fluid in the cul-de-sac. Uterus was about 11 to 12 cm. There was some endometrial thickening with a small amount of endometrial fluid, but no evidence of an intrauterine gestational sac. The left adnexa was not well seen, but there was a small cystic structure seen next to the left ovary, which was about 2.2 cm, but the left ovary itself looked normal according to the report. The right ovary appeared sonographically unremarkable. LABORATORY DATA: The patient's hematocrit value yesterday was 36.8 and today is 34.8. AST and ALT were normal yesterday. The patient's beta-hCG was 27,411 yesterday. The patient's blood type is Rh positive based on the ER physician report. ASSESSMENT: 1. This is a 24-year-old G2, P1 with a previous vaginal with an abnormal beta-hCG with no evidence of IUP (intrauterine ) on ultrasound. Due to the rise in beta-hCG and her increasing abdominal pain, I have consented her for diagnostic laparoscopy and possible salpingectomy. If there is an ectopic mass , it is likely on the left due to the ultrasound findings. I did discuss with her possible need for laparotomy if indicated and D and C if the laparoscopy fail to determine the site of . 2. Blood was also discussed with the patient and she has been consented to blood only if necessary. 3. I have performed informed consent to the patient and informed consent was obtained. 4. I have called the OR (at 11:45) and they are putting her as an add-on. Job ID: [id number] MTDD
[2019-09-03] MEDS ORDERED: Bupivacaine PF 0.5% 30 ML VIAL ONE (12:39)
[2019-09-03] MEDS ORDERED: Lidocaine 1% w/Epinephrine 1:100K 20 ML VIAL ONE (12:39)
[2019-09-03] MEDS ORDERED: Famotidine/PF 20 mg/2ml Vial ONE (12:55)
[2019-09-03] MEDS ORDERED: Meperidine HCl/PF 25 MG/ML VIAL ONE (14:45)
[2019-09-03] MEDS ORDERED: Butorphanol Tartrate 1 MG/ML VIAL SLOW IVP PRN (14:56)
[2019-09-03] MEDS ORDERED: Promethazine HCl 25 MG/ML VIAL IM/IV PRN (14:57)
--- NOTE | 2019-09-03 15:39 | OP ---
DATE OF PROCEDURE: 09/03/2019 PREOPERATIVE DIAGNOSIS: Suspected left tubal ectopic , status post methotrexate. POSTOPERATIVE DIAGNOSES: 1. Suspected left tubal ectopic , status post methotrexate. 2. Left tubal ectopic . PROCEDURES PERFORMED: 1. Left salpingectomy. 2. Diagnostic/operative laparoscopy. SYSTEMS TECHNICIAN: Cristiano Draper MD. ANESTHESIA: General. ANTIBIOTICS: None. IV FLUIDS: About 1 L crystalloid. URINE OUTPUT: By Gomez, about 150 mL at the start of the case by in and out catheterization before the indwelling was placed. ESTIMATED BLOOD LOSS: About 50 mL. Most of that was a hemoperitoneum. FINDINGS: 1. There were no intraabdominal pelvic adhesions. 2. There was a normal ovary on the right and a normal ovary on the left. 3. Normal adnexa on the right. 4. The left tube had about a 2.5 cm swelling with blood through the fimbria. 5. Hemostasis postprocedure. DISPOSITION: Home after recovery. TISSUE SENT: Left tube, which was removed. INDICATIONS FOR SURGERY: This is a patient who received methotrexate over the weekend and came in with rising abdominal pain and abnormal increasing beta HCG. She was consented for laparoscopy and possible salpingectomy. DESCRIPTION OF PROCEDURE: After proper informed consent was explained to the patient, she was taken to OR-C. She was placed under general endotracheal anesthesia, and all precautions were done especially for airborne infections. At this point, it was noted that this patient was not a patient of interest for COVID. Next, the patient was placed in Navarro stirrups and all pressure points were adequately padded. Deep hyperflexion and external rotation were avoided in the positioning process. The patient's vulva, vagina, and lower pelvis and the abdomen were prepped and draped in the usual sterile fashion. Attention was first turned to the patient's vaginal area by me. I placed a Graves bivalve speculum and placed a single-tooth tenaculum on the anterior lip of the cervix for retraction and a single-toothed hulka was placed onto the cervix for uterine manipulation. Then, the single-tooth tenaculum was removed. There was no evidence of perforation. The Graves bivalve speculum was removed. Surgeon's cover gloves were then removed and attention was turned toward the patient's abdomen. It is important to note that we first started with a 5 mm infraumbilical incision, but because of the patient's BMI we were preperitoneal. We tried Veress needle, direct trocar insertion under visualization, but being unsuccessful we tried entry in Escalante's point. Again, due to her BMI, we were preperitoneal. We then decided to go back to the infraumbilical site and entered by open technique. We used a 12 mm Naya after the fascia was identified by sharp dissection. The fascia had been entered to allow the 10 mm trocar to be placed. After noting proper entry into the abdominal pelvic cavity and after noting no injury at the left upper quadrant by direct visualization, we then turned our attention towards the pelvis. Two accessory ports were placed at the right and left lower quadrants for assistance. Proper insufflation was maintained and the left ectopic was noted. We then used a LigaSure device to amputate the left tube where the ectopic was seen. This was placed in an EndoCatch bag and it was removed through the 12 mm port. After confirming hemostasis and after copious irrigation of the abdominal pelvic cavity and after confirming that the left adnexal dissection area was hemostatic, all instruments were removed and the infraumbilical port was closed. The fascia was closed under direct visualization by identification of the fascia and placing 0 Vicryl suture to close the fascia in about 3 or 4 interrupted sutures. No defect was noted at the infraumbilical area. Skin edges were then closed with Dermabond without complication. The infraumbilical incision was closed with subcuticular suture in addition to the Dermabond. No complications were noted. The vaginal hulka was removed at the end of the procedure, and she was transported to recovery without complication. The tissue was sent to Pathology. Job ID: [id number] MTDD
== END 2019-09-03 12:23 | disposition admitted as inpatient to this hospital (09) ==
LOC: ERS 10:15
DX: O00.90 Unspecified ectopic pregnancy without intrauterine pregnancy (principal); E78.5 Hyperlipidemia, unspecified; Z87.891 Personal history of nicotine dependence
CPT/HCPCS: 36415; 84702; 85025; 85610; 85730; 88305; 96361; 96374; J1100; J1170; J1885; J2001; J2175; J2250; J2405; J2704; J2765; J3010; S0020; S0028

== ENCOUNTER 2019-11-21 22:29 | Emergency (ER) | payer SELFPAY ==
[2019-11-21 22:57] LABS: Bilirubin Negative (Negative); Blood, Urine Negative (Negative); Clarity Clear (Clear); Glucose, Urine (Dipstick) Normal (Negative); Ketone, Urine Negative (Negative); Leukocyte 75 Leu/uL (Negative); Nitrite Negative (Negative); Protein, Urine (Dipstick) Negative (Neg-Trace); RBC/HPF 0-3 HPF (0-3); Specific Gravity, Urine 1.033 (1.002-1.036); WBC/HPF 0-3 HPF (0-3); pH, Urine 6.5 (5.0-9.0)
[2019-11-21 22:58] LABS: Bacteria/HPF Rare-Few HPF (None Seen)
[2019-11-21 22:59] LABS: Pregnancy Test - Urine (BHCG) Negative (Negative); Pregu Control Background? CLEAR/WHITE (CLR/WHITE); Pregu Control Bar Appear? YES (CONTROL BAR); Specific Gravity 1.033 (1.002-1.036)
== END 2019-11-21 23:55 | disposition home or self-care (01) ==
LOC: ERS 22:29
DX: L03.316 Cellulitis of umbilicus (principal); E78.5 Hyperlipidemia, unspecified; E78.00 Pure hypercholesterolemia, unspecified; F12.10 Cannabis abuse, uncomplicated
CPT/HCPCS: 81003; 81015; 81025; 99283

== ENCOUNTER 2020-03-21 20:50 | Emergency (ER) | payer SELFPAY ==
[2020-03-21] MEDS ORDERED: Ketorolac Tromethamine 30 MG/ML VIAL ONE (22:24)
[2020-03-21 22:55] LABS: Pregnancy Test - Urine (BHCG) Negative (Negative)
[2020-03-21 22:56] LABS: Pregu Control Background? CLEAR/WHITE (CLR/WHITE); Pregu Control Bar Appear? YES (CONTROL BAR); Specific Gravity 1.028 (1.002-1.036)
[2020-03-22 13:03] LABS: SARS-CoV-2 MS2 Positive; SARS-CoV-2 N Gene Negative; SARS-CoV-2 S Gene Negative; SARS-CoV-2 by NAA Not Detected (NotDetected); SARS-CoV-2 orf1ab Negative
== END 2020-03-22 | disposition home or self-care (01) ==
LOC: ERS 20:50
DX: B34.9 Viral infection, unspecified (principal); E78.5 Hyperlipidemia, unspecified; E78.00 Pure hypercholesterolemia, unspecified; D57.3 Sickle-cell trait
CPT/HCPCS: 81025; 87635; 87804; 96372; 99284; J1885; U0003

== ENCOUNTER 2020-06-06 06:44 | Emergency (ER) | payer SELFPAY ==
[2020-06-06] MEDS ORDERED: Ketorolac Tromethamine 30 MG/ML VIAL ONE (07:29)
--- NOTE | 2020-06-06 07:50 | RAD ---
XR Chest 1 View Portable History: Chest pain Comparison: Radiograph January 17, 2018 Findings: No confluent airspace consolidation, pneumothorax or effusion. No acute osseous abnormality . Impression: No acute intrathoracic abnormality.
--- NOTE | 2020-06-26 22:48 | EKG ---
Test Reason : Blood Pressure : / mmHG Vent. Rate : 058 BPM Atrial Rate : 058 BPM P-R Int : 146 ms QRS Dur : 078 ms QT Int : 410 ms P-R-T Axes : 045 066 045 degrees QTc Int : 402 ms Sinus bradycardia with sinus arrhythmia Nonspecific ST abnormality Abnormal ECG Confirmed by VALDEMAR LOPEZ, BRANDIN ([id number]), non linear editor RIGOBERTO MASON ([id number]) on 06/26/2020 10:47:57 PM Referred By: Confirmed By:BRANDIN ALDRICH MD
== END 2020-06-06 08:43 | disposition home or self-care (01) ==
LOC: ERS 06:44
DX: R07.89 Other chest pain (principal); E78.5 Hyperlipidemia, unspecified; E78.00 Pure hypercholesterolemia, unspecified; F17.210 Nicotine dependence, cigarettes, uncomplicated
CPT/HCPCS: 71045; 93005; 96372; J1885

== ENCOUNTER 2020-09-29 10:13 | Emergency (ER) | payer OTHER ==
[2020-09-29 13:10] LABS: Bilirubin Negative (Negative); Blood, Urine Negative (Negative); Clarity Clear (Clear); Glucose, Urine (Dipstick) Normal (Negative); Ketone, Urine Negative (Negative); Leukocyte 500 Leu/uL (Negative); Nitrite Negative (Negative); Protein, Urine (Dipstick) 30 mg/dL (Neg-Trace); RBC/HPF 0-3 HPF (0-3); Specific Gravity, Urine 1.031 (1.002-1.036); Urobilinogen 3 mg/dL (Less than 2)
[2020-09-29 13:13] LABS: Bacteria/HPF 1+ HPF (None Seen); Pregnancy Test - Urine (BHCG) Negative (Negative); Pregu Control Background? CLEAR/WHITE (CLR/WHITE); Pregu Control Bar Appear? YES (CONTROL BAR); Specific Gravity 1.031 (1.002-1.036)
== END 2020-09-29 12:57 | disposition left against medical advice (07) ==
LOC: ERS 10:13
DX: R11.2 Nausea with vomiting, unspecified (principal); R19.7 Diarrhea, unspecified
CPT/HCPCS: 81003; 81015; 81025; 99283

== ENCOUNTER 2021-10-23 09:07 | Emergency (ER) | payer OTHER ==
[2021-10-23] MEDS ORDERED: Acetaminophen 500 MG TAB ONE (09:37)
[2021-10-23 09:42] LABS: #Eosinphils 0.1 thou/uL (0.0-0.7); #Lymphocytes 2.6 thou/uL (1.20-3.40); #Monocytes 0.7 thou/uL (0.11-0.59); #Neutrophils 4.7 thou/uL (1.40-6.50); %Eosinophils 1.6 % (0.0-10.0); %Lymphocytes 31.6 % (21.0-51.0); %Monocytes 8.9 % (0.0-10.0); %Neutrophils 57.9 % (42.0-75.0); Hemoglobin 11.5 g/dL (12.0-16.0); Mean Corpuscular HGB CONC 35.4 g/dL (32.0-36.0); Mean Corpuscular Hemoglobin 29.6 pg (27.0-31.0); Mean Corpuscular Volume 83.7 fL (78.0-98.0); Mean Platelet Volume 7.5 fL (7.4-10.4); Platelet Count 299 thou/uL (130-400); RBC Distribution Width 12.8 % (11.5-14.5); Red Blood Cell (RBC) Count 3.88 mill/uL (4.20-5.40); White Blood Cell (WBC) Count 8.1 thou/uL (4.8-10.8)
[2021-10-23 10:05] LABS: ALT (SGPT) 13 U/L (8-55); AST (SGOT) 11 U/L (5-34); Albumin 3.6 g/dL (3.5-5.0); Alkaline Phosphatase 45 U/L (40-110); Anion Gap 15 mmol/L (10-20); BUN (Urea Nitrogen) 7 mg/dL (7.0-18.7); Bilirubin, Total 0.6 mg/dL (0.2-1.2); Calc. Creatinine Clearance 0 mL/min (70-130); Carbon Dioxide 19 mmol/L (22-29); Chloride 105 mmol/L (98-107); Globulin 3.1 g/dL (2.4-3.5); Glucose 101 mg/dL (70-105); Lipase 9 U/L (8-78); Potassium 3.6 mmol/L (3.5-5.1); Protein, Total 6.7 g/dL (6.0-8.3); Sodium 135 mmol/L (136-145)
[2021-10-23 10:49] LABS: Bilirubin Negative (Negative); Blood, Urine Negative (Negative); Clarity Clear (Clear); Glucose, Urine (Dipstick) Normal (Negative); Ketone, Urine Negative (Negative); Leukocyte 500 Leu/uL (Negative); Nitrite Negative (Negative); Protein, Urine (Dipstick) 20 mg/dL (Neg-Trace); RBC/HPF 0-3 HPF (0-3); Urobilinogen Normal mg/dL (Less than 2)
[2021-10-23 10:51] LABS: Bacteria/HPF 1+ HPF (None Seen)
== END 2021-10-23 11:26 | disposition home or self-care (01) ==
LOC: ERS 09:07
DX: O99.891 Other specified diseases and conditions complicating pregnancy (principal); R51.9 Headache, unspecified; O23.42 Unspecified infection of urinary tract in pregnancy, second trimester; N39.0 Urinary tract infection, site not specified; O24.911 Unspecified diabetes mellitus in pregnancy, first trimester; Z79.899 Other long term (current) drug therapy
CPT/HCPCS: 36415; 76815; 80053; 81003; 81015; 83690; 85025

== ENCOUNTER 2021-11-09 10:30 | Outpatient (CLI) | payer OTHER | END 2021-11-09 10:31 | disposition home or self-care (01) | LOC: BICULT 10:30 | PROVIDERS: ATTEND Family Medicine | DX: O09.892 Supervision of other high risk pregnancies, second trimester (principal); Z3A.21 21 weeks gestation of pregnancy | CPT/HCPCS: 76805 ==

== ENCOUNTER 2022-08-01 07:24 | Emergency (ER) | payer OTHER ==
[2022-08-01] MEDS ORDERED: Promethazine HCl 25 MG in Sodium Chloride 0.9% 50 ML IVPB SCH (09:00)
[2022-08-01 09:01] LABS: #Basophils 0.1 thou/uL (0.0-0.2); #Lymphocytes 2.8 thou/uL (1.20-3.40); #Monocytes 1.1 thou/uL (0.11-0.59); #Neutrophils 11.6 thou/uL (1.40-6.50); %Basophils 0.6 % (0.0-1.0); %Eosinophils 0.1 % (0.0-10.0); %Lymphocytes 17.7 % (21.0-51.0); %Monocytes 7.3 % (0.0-10.0); %Neutrophils 74.3 % (42.0-75.0); Hemoglobin 13.2 g/dL (12.0-16.0); Mean Corpuscular HGB CONC 36.1 g/dL (32.0-36.0); Mean Corpuscular Hemoglobin 28.5 pg (27.0-31.0); Mean Corpuscular Volume 79.1 fl (78.0-98.0); Mean Platelet Volume 7.8 fL (7.4-10.4); Platelet Count 456 10x3/uL (130-400); RBC Distribution Width 13.6 % (11.5-14.5); Red Blood Cell (RBC) Count 4.63 mill/uL (4.20-5.40); White Blood Cell (WBC) Count 15.7 10x3/uL (4.8-10.8)
[2022-08-01 09:25] LABS: ALT (SGPT) 39 U/L (8-55); AST (SGOT) 29 U/L (5-34); Acetaminophen Less than 10.0 mcg/mL (10.0-30.0); Albumin 4.4 g/dL (3.5-5.0); Alcohol Less than 10 mg/dL (Less than 10); Alkaline Phosphatase 65 U/L (40-110); Anion Gap 17 mmol/L (10-20); BUN (Urea Nitrogen) 8 mg/dL (7.0-18.7); Bilirubin, Total 1.7 mg/dL (0.2-1.2); Calc. Creatinine Clearance 0 mL/min (70-130); Calcium 10.2 mg/dL (7.8-10.44); Carbon Dioxide 18 mmol/L (22-29); Chloride 107 mmol/L (98-107); Estimated GFR 106; Globulin 3.6 g/dL (2.4-3.5); Glucose 121 mg/dL (70-105); Lipase 22 U/L (8-78); Potassium 3.6 mmol/L (3.5-5.1); Salicylate Less than 8.0 mg/dL (15.0-30.0); Sodium 138 mmol/L (136-145)
[2022-08-01 09:47] LABS: HCG, Total Quant 95614.9 mIU/mL (See Ranges)
[2022-08-01 09:48] LABS: Thyroid Stimulating Hormone 0.3454 uIU/mL (0.35-4.94)
[2022-08-01 13:21] LABS: Amphetamine Not Detected (NotDetected); Barbiturates Screen Not Detected (NotDetected); Benzodiazepine Screen Not Detected (NotDetected); Cocaine Metabolite Screen Not Detected (NotDetected); Methadone Not Detected (NotDetected); Methamphetamine Not Detected (NotDetected); Opiate Screen Not Detected (NotDetected); Oxycodone Screen Not Detected (NotDetected); Phencyclidine (PCP) Not Detected (NotDetected); THC/Cannabinoid Screen Detected (NotDetected); Tricyclic Screen Not Detected (NotDetected)
[2022-08-01 13:25] LABS: Bacteria/HPF 1+ HPF (None Seen); Bilirubin Negative (Negative); Blood, Urine Negative (Negative); Clarity Turbid (Clear); Glucose, Urine (Dipstick) Normal (Negative); Ketone, Urine 40 mg/dL (Negative); Leukocyte 500 Leu/uL (Negative); Nitrite Negative (Negative); Protein, Urine (Dipstick) 100 mg/dL (Neg-Trace); Specific Gravity, Urine 1.035 (1.002-1.036); Urobilinogen Normal mg/dL (Less than 2); WBC/HPF 21-50 HPF (0-3); pH, Urine 8.5 (5.0-9.0)
[2022-08-01] MEDS ORDERED: Cephalexin 250 MG CAP ONE ×2 (13:46→13:54)
[2022-08-01] MEDS ORDERED: Ondansetron PF 4 MG/2 ML Vial ONE (13:54)
[2022-08-01] MEDS ORDERED: Ondansetron ODT 4 MG TAB ONE (18:01)
== END 2022-08-01 18:05 ==
LOC: ERS 07:24
DX: R45.851 Suicidal ideations (principal); O99.891 Other specified diseases and conditions complicating pregnancy; D72.829 Elevated white blood cell count, unspecified; E11.9 Type 2 diabetes mellitus without complications
CPT/HCPCS: 76801; 80053; 80306; 80307; 81003; 81015; 83690; 84443; 84484; 84702; 85025; 87086; 93005; 96361; 96365; 96366; 96375; J2405; J2550; Q0162

== ENCOUNTER 2022-12-12 13:57 | Emergency (ER) | payer OTHER ==
[2022-12-12] MEDS ORDERED: Prochlorperazine 10 MG/2 ML VIAL ONE (14:21)
[2022-12-12 15:33] LABS: #Monocytes 0.6 thou/uL (0.11-0.59); #Neutrophils 6.5 thou/uL (1.40-6.50); %Basophils 0.2 % (0.0-1.0); %Eosinophils 0.1 % (0.0-10.0); %Lymphocytes 18.7 % (21.0-51.0); %Monocytes 6.3 % (0.0-10.0); %Neutrophils 74.4 % (42.0-75.0); Hemoglobin 10.5 g/dL (12.0-16.0); Mean Corpuscular HGB CONC 35.2 g/dL (32.0-36.0); Mean Corpuscular Hemoglobin 29.4 pg (27.0-31.0); Mean Corpuscular Volume 83.5 fl (78.0-98.0); Mean Platelet Volume 10.9 fL (7.4-10.4); Platelet Count 268 10x3/uL (130-400); RBC Distribution Width 13.8 % (11.5-14.5); Red Blood Cell (RBC) Count 3.57 mill/uL (4.20-5.40); White Blood Cell (WBC) Count 8.7 10x3/uL (4.8-10.8)
[2022-12-12 16:03] LABS: ALT (SGPT) 10 U/L (8-55); AST (SGOT) 13 U/L (5-34); Albumin 3.5 g/dL (3.5-5.0); Alkaline Phosphatase 46 U/L (40-110); Anion Gap 16 mmol/L (10-20); BUN (Urea Nitrogen) Less than 4 mg/dL (7.0-18.7); Bilirubin, Total 0.7 mg/dL (0.2-1.2); Calc. Creatinine Clearance 0 mL/min (70-130); Calcium 9.1 mg/dL (7.8-10.44); Carbon Dioxide 18 mmol/L (22-29); Chloride 107 mmol/L (98-107); Estimated GFR 127; Glucose 90 mg/dL (70-105); Potassium 3.5 mmol/L (3.5-5.1); Protein, Total 6.5 g/dL (6.0-8.3); Sodium 137 mmol/L (136-145)
[2022-12-12 16:45] LABS: Bacteria/HPF None Seen HPF (None Seen); Bilirubin Negative (Negative); Blood, Urine Negative (Negative); CAUTI Indications for Culture Pregnancy; Clarity Clear (Clear); Glucose, Urine (Dipstick) Normal (Negative); Ketone, Urine Greater than 150 mg/dL (Negative); Leukocyte 75 Leu/uL (Negative); Nitrite Negative (Negative); Protein, Urine (Dipstick) 30 mg/dL (Neg-Trace); RBC/HPF 0-3 HPF (0-3); Specific Gravity, Urine 1.025 (1.002-1.036); Squamous Epithelial 0-3 HPF (0-3); Urobilinogen Normal mg/dL (Less than 2); WBC/HPF 0-3 HPF (0-3); pH, Urine 7.5 (5.0-9.0)
[2022-12-12 16:49] LABS: Urine Culture Reflex Yes Yes
[2022-12-12 16:52] LABS: Amphetamine Not Detected (NotDetected); Barbiturates Screen Not Detected (NotDetected); Benzodiazepine Screen Not Detected (NotDetected); Cocaine Metabolite Screen Not Detected (NotDetected); Methadone Not Detected (NotDetected); Methamphetamine Not Detected (NotDetected); Opiate Screen Not Detected (NotDetected); Oxycodone Screen Not Detected (NotDetected); Phencyclidine (PCP) Not Detected (NotDetected); THC/Cannabinoid Screen Detected (NotDetected); Tricyclic Screen Not Detected (NotDetected)
== END 2022-12-12 17:13 | disposition home or self-care (01) ==
LOC: ERS 13:57
DX: O21.0 Mild hyperemesis gravidarum (principal); O23.42 Unspecified infection of urinary tract in pregnancy, second trimester; N39.0 Urinary tract infection, site not specified; O99.342 Other mental disorders complicating pregnancy, second trimester; F12.288 Cannabis dependence with other cannabis-induced disorder; E11.9 Type 2 diabetes mellitus without complications; I10 Essential (primary) hypertension; Z3A.26 26 weeks gestation of pregnancy
CPT/HCPCS: 36415; 76815; 80053; 80306; 81001; 85025; 87086; 96361; 96374; J0780